=== PATIENT | female | born 1980 | race Asian ===

== ENCOUNTER 2016-09-11 19:14 | Emergency (ER) | payer OTHER ==
[~2016-09-11] VITALS: Ht 162.6 cm; Wt 109.8 kg
[2016-09-11 20:29] LABS: PLATELET COUNT 305 K/uL (152-353)
[2016-09-11 21:34] VITALS: BP 142/87; TEMP 98.9
== END 2016-09-11 21:41 | disposition home or self-care (01) ==
LOC: ED 19:14
PROVIDERS: Specialist
DX: M13.862 Other specified arthritis, left knee (principal)
CPT/HCPCS: 36415; 84550; 85027; 85651; 99283

== ENCOUNTER 2016-10-15 06:55 | Emergency (ER) | payer OTHER ==
[~2016-10-15] VITALS: Ht 162.6 cm; Wt 109.8 kg
[2016-10-15] MEDS ORDERED: LOPRESSOR100 MG PO (07:07)
[2016-10-15 07:57] VITALS: BP 145/72; TEMP 97.2
== END 2016-10-15 08:06 | disposition home or self-care (01) ==
LOC: ED 06:55
DX: S51.812A Laceration without foreign body of left forearm, initial encounter (principal); W18.09XA Striking against other object with subsequent fall, initial encounter; Y93.89 Activity, other specified; Y92.89 Other specified places as the place of occurrence of the external cause; Y99.8 Other external cause status
CPT/HCPCS: 90715; 99284

== ENCOUNTER 2019-09-11 15:03 | Emergency (ER) | payer OTHER ==
[~2019-09-11] VITALS: Ht 162.6 cm; Wt 123.8 kg
[~2019-09-11 15:03] MED LIST: LOPRESSOR100 MG PO
[2019-09-11 15:10] VITALS: BP 151/91; TEMP 99.1
== END 2019-09-11 16:50 | disposition home or self-care (01) ==
LOC: ED 15:03
PROC: 0HQ0XZZ Repair Scalp Skin, External Approach (ICD-10-PCS; principal; 2019-09-11)
DX: S01.01XA Laceration without foreign body of scalp, initial encounter (principal); W18.39XA Other fall on same level, initial encounter; Y92.098 Other place in other non-institutional residence as the place of occurrence of the external cause
CPT/HCPCS: 99283

== ENCOUNTER 2019-09-19 15:43 | Emergency (ER) | payer OTHER ==
[~2019-09-19] VITALS: Ht 162.6 cm; Wt 123.8 kg
[2019-09-19 16:15] VITALS: BP 137/80; TEMP 98.7
== END 2019-09-19 16:50 | disposition home or self-care (01) ==
LOC: ED 15:43
DX: Z48.02 Encounter for removal of sutures (principal)

== ENCOUNTER 2019-10-02 20:44 | Emergency (ER) | payer OTHER ==
[~2019-10-02] VITALS: Ht 162.6 cm; Wt 123.8 kg
[2019-10-02 22:45] LABS: PLATELET COUNT 228 K/uL (152-353)
[2019-10-02 22:51] LABS: POTASSIUM 3.8 mmol/L (3.6-5.2)
[2019-10-02 23:39] VITALS: BP 135/84; TEMP 99.2
== END 2019-10-02 23:39 | disposition home or self-care (01) ==
LOC: ED 20:44
PROVIDERS: Emergency Medicine
DX: U07.1 COVID-19 (principal); J12.9 Viral pneumonia, unspecified
CPT/HCPCS: 36415; 80053; 83605; 85027; 87040; 87502; 87635; 87651; 99283; U00003